=== PATIENT | male | born 1975 | race Caucasian/White ===

== ENCOUNTER → 2024-07-24 11:19 | Outpatient (REF) | payer OTHER, SELFPAY | LOC: RAD 11:19 | PROVIDERS: ATTENDING PHYSICIAN Internal Medicine; FAMILY PHYSICIAN Student in an Organized Health Care Education/Training Program | DX: M93.20 Osteochondritis dissecans of unspecified site (principal); M54.12 Radiculopathy, cervical region | CPT/HCPCS: 72050; 73564 ==

== ENCOUNTER 2025-01-04 21:15 | Emergency (ER) | payer OTHER, SELFPAY ==
[2025-01-04 21:17] VITALS: BP 142/97
[2025-01-04 21:36] VITALS: BP 135/96; BMI 36.7
[2025-01-04 22:00] VITALS: BP 111/91
[2025-01-04] MEDS: TORADOL 15 MG IV (22:20)
[2025-01-04 22:29] LABS: Hematocrit 45.8 % (39.0-52.0); Hemoglobin 15.9 g/dL (13.0-18.0); Mean Corp Hgb Conc. 34.7 g/dL (33.0-37.0); Mean Corpuscular Volume 83.0 fL (80.0-94.0); Nucleated Red Blood Cells % 0 % (-); Platelet Count 308 10^3/uL (130-400); Red Cell Dist. Width 11.9 % (11.5-14.5)
[2025-01-04 22:56] LABS: ALT (SGPT) 24 U/L (0-50); AST (SGOT) 17 U/L (17-59); Albumin 4.3 g/dl (3.5-5.0); Alkaline Phosphatase 70 U/L (38-126); Blood Urea Nitrogen 11 mg/dl (9-20); Calcium 9.3 mg/dl (8.4-10.2); Carbon Dioxide 29 mmol/L (22-30); Chloride 106 mmol/L (98-107); Estimated Creatinine Clearance > 125 ml/min; Glucose 68 mg/dl (70-99); Potassium 4.5 mmol/L (3.5-5.1); Sodium 141 mmol/L (135-145); Total Protein 6.8 g/dl (6.3-8.2); eGFR > 60.00
[2025-01-04 23:00] VITALS: BP 132/93
--- NOTE | 2025-01-04 23:58 | ED.GENMED ---
History of Present Illness
General
Chief Complaint: Cough
Source: patient
Exam Limitations: none
Time Seen by Provider: 01/04/25 21:29
Nursing documentation reviewed up to this point in time: agreed with
History of Present Illness
History of Present Illness:
49-year-old male presenting to the emergency department today with concerns of chest congestion cough over the past month with some pain rating to his back. Denies any fevers nausea vomiting or additional concerns.
Past History
Past History
ED Past Medical History: GERD, HTN and Other (Chronic low back pain,)
ED Past Surgical History: Orthopedic (knee arthroscopy, lumbar discectomy)
Social History
Tobacco: Smoker (Admits to smoking cigarettes tonight)
Alcohol: Occasional
Personal: Single
Living: with family
Employment: Employed
Family History
Family History: Hypertension
Review of Systems
Review of Systems
Allergies reviewed?: Yes
All Other Systems: ROS reviewed and negative except as documented in HPI and ROS
Phy Exam
Physical Exam
Physical Exam:
GENERAL: Alert , in no apparent distress
EYE: pupils equal and reactive
NECK: Supple, no significant adenopathy.
ENT: o/p clr, mmm.
CARDIAC: Regular rate and rhythm .
LUNGS: Clear breath sounds bilaterally, no acute respiratory distress, no wheezes/rales/rhonchi
ABDOMEN: Soft, without focal tenderness, no r/g, no cvat
NEUROLOGICAL: Alert and oriented, no focal neuro deficits
SKIN: Warm and dry, skin intact.
MUSCULOSKELETAL: No edema, well perfused.
PSYCH: Normal and appropriate interaction.
Course
Orders/Labs/Results
Orders:
Orders
01/04/25 22:01
EKG [Electrocardiogram (*1)] Urgent
Reason for Study: Fatigue / Weakness
Ketorolac [Toradol] 15 mg IV NOW STA
01/04/25 22:02
EKG- Treatment ONCE
01/04/25 22:18
CBC/With Diff [Complete Blood Count/With Diff] Urgent
01/04/25 22:19
CMP [Comprehensive Metabolic Panel] Urgent
01/05/25 00:00
CR Chest - 2 Views Urgent
Reason For Exam: cough
01/05/25 01:40
Dexamethasone [Decadron] 10 mg PO NOW STA
Ipratropium/Albuterol Sulfate [Duoneb] 3 ml INH R NOW ONE
Abnormal Lab Results
01/04/25 01/04/25
22:18 22:19
Absolute Monos (auto) 0.7 H 10^3/uL
(0.1-0.6)
Glucose 68 L mg/dl
(70-99)
01/04/25 22:18
01/04/25 22:19
Vital Signs
Initial and Last Documented VS:
Initial Vital Signs
Temp Pulse Resp BP Pulse Ox
98.5 F 112 18 142/97 97
01/04/25 21:17 01/04/25 21:17 01/04/25 21:17 01/04/25 21:17 01/04/25 21:17
Last Documented Vital Signs
Temp Pulse Resp BP Pulse Ox
98.5 F 112 18 139/89 94
01/04/25 21:17 01/04/25 21:17 01/04/25 21:17 01/05/25 01:04 01/05/25 01:30
MDM/Problems Addressed
MDM/Problems Addressed:
49-year-old male presenting to the emergency department today with concerns of chest congestion and cough over the past month. Denies any palpitations or specific chest pain. Initially heart rate was documented as elevated but heart rate was
normal throughout my assessment EKG with heart rate in the 80s. Pulse ox in the high 90s. No risk factors for PE. Labs unremarkable EKG without emergent findings chest x-ray without emergent findings no signs of pneumonia. Patient did have a
hacking cough was given steroids and help with symptoms. Return precautions given.
*Pulse Oximetry
SaO2: 94
Oxygen Mode of Delivery: Room air
Patient hypoxic: no (97)
*Critical Care Note
Total Time (30-74mins, 75-104mins- exclusive of procedures): Not Applicable
ED Attending Note
-
Portions of this chart may have been created with voice recognition software.� Occasional wrong word or��sound alike� substitutions may have occurred due to the inherent limitations of voice recognition software.
Discharge Plan
Departure
Patient Disposition: Home (Routine Discharge)
Date of Disposition: 01/05/25
Time of Disposition: 01:44
Patient with high blood pressure during this ER visit?: No
Condition: Good
Covid-19: Not Applicable
Discharge Problem:
Acute bronchitis
Instructions: Acute Bronchitis, Adult (DC)
Prescriptions:
New
albuterol sulfate [Ventolin HFA] 90 mcg/actuation HFA aerosol inhaler
2 puff inhalation Q6H PRN (Reason: shortness of breath or wheezing) Qty: 8.5 0RF
No Action
sertraline 50 MG tablet
50 mg PO DAILY
oxycodone-acetaminophen [Percocet] 1 EACH tablet
1 ea PO QID
oxycodone myristate [Xtampza ER] 9 MG cap,sprinkl,ER12hr(DONT CRUSH)
9 mg PO BID
Referrals:
Mookie Mathews DO [Family Provider, Internal Medicine]
Activity Restrictions/Additional Instructions:
You came to the emergency department today with concerns of cough here your chest x-ray did not show pneumonia. Please take the inhaler. You are also given a dose of a steroid. Return for any worsening, new or concerning symptoms. Please follow
closely with your primary care doctor within the next week for reassessment.
Interventions
Interventions:
*Risk Screen - Suicide Last Done: 01/04/25 21:17
*General Assessment Last Done: 01/04/25 21:17
*Neglect/Abuse Screening Last Done: 01/04/25 21:17
*ED- Fall Risk Assessment Last Done: 01/04/25 21:36
*ED COVID-19 Vaccine History Last Done: 01/04/25 21:36
ED- Pulmonary Assessment Last Done: 01/04/25 21:36
Discharge Date and Time
Print Language: MOSOT[place]
[2025-01-05] VITALS: BP 128/97
[2025-01-05 01:04] VITALS: BP 139/89
[2025-01-05] MEDS: DECADRON 10 MG PO (01:47)
[2025-01-05] MEDS: DUONEB 3 ML INH (01:48)
[2025-01-05 02:00] VITALS: BP 136/95
== END 2025-01-05 02:14 | disposition home or self-care (01) ==
LOC: EMR 21:15
PROVIDERS: Physician Assistant; EMERGENCY PHYSICIAN Emergency Medicine; FAMILY PHYSICIAN Internal Medicine
DX: J20.9 Acute bronchitis, unspecified (principal); I10 Essential (primary) hypertension; M54.50 Low back pain, unspecified; K21.9 Gastro-esophageal reflux disease without esophagitis; F17.210 Nicotine dependence, cigarettes, uncomplicated; G89.29 Other chronic pain; Z91.041 Radiographic dye allergy status; Z91.012 Allergy to eggs; Z91.011 Allergy to milk products; Z91.018 Allergy to other foods
CPT/HCPCS: 99284; 96374; 94640; 71046; 80053; 85025; 93005